=== PATIENT | female | born 1945 | race Caucasian/White ===

== ENCOUNTER 2022-01-11 08:12 | Day surgery (SDC) | payer BC ==
[2021-12-27 14:32] VITALS: BMI 23.8
[2022-01-11] MEDS ORDERED: CELECOXIB 200 MG CAPSULE ONE (08:42)
[2022-01-11] MEDS ORDERED: CELECOXIB 200 MG CAPSULE PO ONE (09:00)
[2022-01-11] MEDS ORDERED: TRANEXAMIC ACID 1000 MG/10 ML VIAL IVPUSH ONE (09:00)
[2022-01-11] MEDS ORDERED: CEFAZOLIN 2 GM in DEXTROSE 5%-WATER - 50 ML IVPB ONE (09:00)
[2022-01-11] MEDS ORDERED: ceFAZolin SODIUM 1 GM VIAL ONE ×3 (09:49→20:05)
[2022-01-11] MEDS ORDERED: VANCOMYCIN 1,000 MG VIAL (RESTRICTED TO ID ONLY) ONE ×2 (09:50→12:59)
[2022-01-11] MEDS ORDERED: MIDAZOLAM HCL 2 MG/2 ML SINGLE DOSE VIAL ONE ×2 (09:52→11:18)
[2022-01-11] MEDS ORDERED: BUPIVACAINE HCL 100 ML ONE (09:53)
[2022-01-11] MEDS ORDERED: BUPIVACAINE LIPOSOME/PF (EXPAREL) 266 MG/20 ML VIAL ONE (09:54)
[2022-01-11] MEDS ORDERED: BUPIVACAINE HCL 50 ML ONE (10:18)
[2022-01-11] MEDS ORDERED: DEXAMETHASONE SOD PHOSPHATE 4 MG/1 ML VIAL ONE (11:31)
[2022-01-11] MEDS ORDERED: TRANEXAMIC ACID 1000 MG/10 ML VIAL ONE (11:31)
[2022-01-11] MEDS ORDERED: ONDANSETRON 4 MG/2 ML VIAL ONE (11:31)
[2022-01-11] MEDS ORDERED: ONDANSETRON 4 MG/2 ML VIAL IVPUSH PRN (11:50)
[2022-01-11] MEDS ORDERED: MAG HYDROX/AL HYDROX/SIMETH 30 ML UNIT-DOSE CUP PO PRN (11:50)
[2022-01-11] MEDS ORDERED: LACTATED RINGERS SOLUTION 1,000 ML IV SCH (12:00)
[2022-01-11] MEDS: KETOROLAC TROMETHAMINE 30 MG/1 ML VIAL IVPUSH SCH ×2 (14:00→20:15)
[2022-01-11] MEDS ORDERED: ACETAMINOPHEN 1000 MG/100 ML BAG IVPB ONE (15:00)
[2022-01-11] MEDS: oxyCODONE HCL 5 MG TABLET PO PRN (16:40)
[2022-01-11] MEDS ORDERED: DEXTROSE 5%-WATER - 50 ML IVPB ONE (20:05)
[2022-01-11] MEDS: CEFAZOLIN 2 GM in DEXTROSE 5%-WATER - 50 ML IVPB SCH (20:14)
[2022-01-11] MEDS: ACETAMINOPHEN 500 MG TABLET (FP) PO SCH (20:14)
[2022-01-11] MEDS: oxyCODONE HCL 10 MG SUSTAINED ACTING TABLET PO SCH (21:44)
[2022-01-11] MEDS: SENNOSIDES/DOCUSATE COMBO (SENNA PLUS) TABLET (UD) PO SCH (21:44)
[2022-01-12] MEDS ORDERED: ceFAZolin SODIUM 1 GM VIAL ONE (02:37)
[2022-01-12] MEDS ORDERED: DEXTROSE 5%-WATER - 50 ML IVPB ONE (02:37)
[2022-01-12] MEDS: CEFAZOLIN 2 GM in DEXTROSE 5%-WATER - 50 ML IVPB SCH (03:07)
[2022-01-12] MEDS: ACETAMINOPHEN 500 MG TABLET (FP) PO SCH ×4 (06:06→21:43)
[2022-01-12] MEDS: ASPIRIN 325 MG TABLET PO SCH (07:48)
[2022-01-12] MEDS: LEVOTHYROXINE NA 100 MCG TABLET (FP) PO SCH (07:48)
[2022-01-12 08:05] LABS: HEMATOCRIT 32.9 % (32.4-45.2); HEMOGLOBIN 11.4 G/dL (10.7-15.3); MCHC 34.6 g/dl (32.0-36.0); MEAN CELL VOLUME 92.5 fl (80-96); MEAN PLT VOLUME 8.9 fl (7.5-11.1); PLATELET COUNT 128.5 10^3/uL (134-434); RBC 3.56 10^6/uL (3.60-5.2); RDW 14.5 % (11.6-15.6); WHITE BLOOD COUNT 11.4 10^3/uL (4.0-10.8)
[2022-01-12] MEDS: SENNOSIDES/DOCUSATE COMBO (SENNA PLUS) TABLET (UD) PO SCH ×2 (08:57→21:43)
[2022-01-12] MEDS: MULTIVITAMINS (DAILY MVI) TABLET (FP) PO SCH (08:59)
[2022-01-12] MEDS: oxyCODONE HCL 10 MG SUSTAINED ACTING TABLET PO SCH ×2 (08:59→21:42)
[2022-01-12] MEDS: PANTOPRAZOLE 40 MG TABLET PO SCH (08:59)
[2022-01-12] MEDS: oxyCODONE HCL 5 MG TABLET PO PRN ×2 (09:00→13:24)
[2022-01-12] MEDS ORDERED: LEVOTHYROXINE NA 100 MCG TABLET (FP) PO SCH (10:00)
[2022-01-13] MEDS: oxyCODONE HCL 5 MG TABLET PO PRN ×2 (00:27→08:29)
[2022-01-13] MEDS: ACETAMINOPHEN 500 MG TABLET (FP) PO SCH ×2 (06:38→09:15)
[2022-01-13] MEDS: LEVOTHYROXINE NA 100 MCG TABLET (FP) PO SCH (06:39)
[2022-01-13 08:09] LABS: HEMATOCRIT 30.5 % (32.4-45.2); HEMOGLOBIN 10.4 G/dL (10.7-15.3); MCH 31.5 pg (25.7-33.7); MCHC 34.2 g/dl (32.0-36.0); MEAN CELL VOLUME 92.1 fl (80-96); MEAN PLT VOLUME 9.3 fl (7.5-11.1); PLATELET COUNT 116.6 10^3/uL (134-434); RBC 3.31 10^6/uL (3.60-5.2); RDW 14.4 % (11.6-15.6)
[2022-01-13] MEDS: ASPIRIN 325 MG TABLET PO SCH (08:29)
[2022-01-13] MEDS: oxyCODONE HCL 10 MG SUSTAINED ACTING TABLET PO SCH (09:12)
[2022-01-13] MEDS: PANTOPRAZOLE 40 MG TABLET PO SCH (09:14)
[2022-01-13] MEDS: MULTIVITAMINS (DAILY MVI) TABLET (FP) PO SCH (09:14)
[2022-01-13] MEDS: SENNOSIDES/DOCUSATE COMBO (SENNA PLUS) TABLET (UD) PO SCH (09:15)
[2022-01-13 09:34] VITALS: BP 125/54; PULSE 85; TEMP 98
== END 2022-01-13 13:28 | disposition home health service (06) ==
LOC: FASUSAT 08:12 → FM/S 15:04 → FASUSAT 01-13 13:28
PROVIDERS: ATTEND Orthopaedic Surgery
PROC: 8E0YXBZ Computer Assisted Procedure of Lower Extremity (ICD-10-PCS; 2022-01-11)
PROC: 8E0Y0CZ Robotic Assisted Procedure of Lower Extremity, Open Approach (ICD-10-PCS; 2022-01-11)
PROC: 0SRC0J9 Replacement of Right Knee Joint with Synthetic Substitute, Cemented, Open Approach (ICD-10-PCS; principal; 2022-01-11 11:50)
DX: M17.11 Unilateral primary osteoarthritis, right knee (principal); E03.9 Hypothyroidism, unspecified
CPT/HCPCS: 20985; 27447; C1776; S2900; 36415; 73560-TC-RT-FY; 85027; 94760; 97010-GP; 97116-GP; 97161-GP